=== PATIENT | male | born 1970 | race Caucasian/White ===

== ENCOUNTER 2023-03-01 23:25 | Emergency (ER) | payer OTHER ==
[~2023-03-01] VITALS: Ht 190.5 cm; Wt 109.8 kg
[2023-03-01] MEDS ORDERED: TADALAFIL10 MG PO (23:36)
[2023-03-02 01:42] VITALS: BP 151/73
== END 2023-03-02 01:40 | disposition short-term general hospital (02) ==
LOC: ED 23:25
DX: S05.92XA Unspecified injury of left eye and orbit, initial encounter (principal); Z20.822 Contact with and (suspected) exposure to COVID-19; W22.8XXA Striking against or struck by other objects, initial encounter; Z79.899 Other long term (current) drug therapy
CPT/HCPCS: 36415; 70486; 80053; 85025; 90471; 90715; 96365; 96375; 96376; 99284-25; C9803; G0480; J1170; J1956; J2405; J7030; U0002

== ENCOUNTER 2024-06-04 05:52 | Day surgery (SDC) | payer BC ==
[2024-06-03 08:13] VITALS: BP 126/78
[~2024-06-04] VITALS: Ht 190.5 cm; Wt 113.6 kg
[~2024-06-04 05:52] MED LIST: CIALIS20 MG PO; LACTATED RINGER'S 1,000 ML IV SCH; TADALAFIL10 MG PO
[2024-06-04 06:14] VITALS: BP 129/72
[2024-06-04] MEDS ORDERED: KETOROLAC TROMETHAMINE 30 MG/ML VIAL ONE (06:32)
[2024-06-04] MEDS ORDERED: LACTATED RINGER'S 1,000 ML IV ONE (06:32)
[2024-06-04] MEDS ORDERED: SUGAMMADEX SODIUM 200 MG/2 ML ML ONE (06:32)
[2024-06-04] MEDS ORDERED: ROCURONIUM BROMIDE 50 MG/5 ML SYR ONE (06:32)
[2024-06-04] MEDS ORDERED: MIDAZOLAM HCL 2 MG/2 ML VIAL ONE (06:32)
[2024-06-04] MEDS ORDERED: ondansetron HCL 4 MG/2 ML VIAL ONE (06:32)
[2024-06-04] MEDS ORDERED: METOCLOPRAMIDE HCL 10 MG/2 ML SDV ONE (06:32)
[2024-06-04] MEDS ORDERED: propofoL 200 MG/20 ML VIAL ONE (06:32)
[2024-06-04] MEDS ORDERED: SUCCINYLCHOLINE IN 0.9% NACL 200 MG/10 ML SYRINGE ONE (06:32)
[2024-06-04] MEDS ORDERED: DEXAMETHASONE SOD PHOS 4 MG/ML VIAL ONE (06:32)
[2024-06-04] MEDS ORDERED: fentaNYL citrate 100 MCG/2 ML VIAL ONE (06:33)
[2024-06-04] MEDS ORDERED: LIDOCAINE HCL 4% 5 ML AMP ONE (06:33)
[2024-06-04] MEDS ORDERED: FAMOTIDINE 20 MG/ 2 ML VIAL ONE (06:33)
[2024-06-04] MEDS ORDERED: BUPIVACAINE HCL 0.25% 50 ML MDV ONE (06:54)
[2024-06-04] MEDS ORDERED: LIDOCAINE 1% W/ EPI 1:200,000 30 ML SDV ONE (06:55)
[2024-06-04] MEDS ORDERED: IBLOOD GLUCOSE TEST STRIP 1 EA TEST VI PRN ×2 (07:00→09:00)
[2024-06-04] MEDS ORDERED: LIDOCAINE HCL 1% 5 ML SDV INJ ONE (07:00)
[2024-06-04] MEDS ORDERED: HEParin SOD (PORCINE) 5,000 UNIT/0.5 ML SYR SUB-Q SCH (07:00)
[2024-06-04] MEDS ORDERED: CEFAZOLIN SODIUM 2 GM/20 ML SYR IV SCH (07:00)
[2024-06-04] MEDS ORDERED: ATROPINE SULFATE 1 MG/ML VIAL ONE (08:02)
[2024-06-04] MEDS ORDERED: ePHEDrine sulfate 50 MG/ML AMP ONE (08:38)
--- NOTE | 2024-06-04 08:48 | NUR ---
06/04/24 0848 María Pope 0828 PT TO PACU SLEEPING ORAL AIRWAY IN PLACE O2 VIA MASK FOGGING NOTED IN MASK. MONTSERRAT ONTIVEROS GAVE EPHEDRINE FOR LOW BP.
[2024-06-04] MEDS ORDERED: MORPHINE SULFATE 10 MG/ML VIAL IV PRN (09:00)
[2024-06-04] MEDS ORDERED: droPERidol 5 MG/2 ML VIAL IV PRN (09:00)
[2024-06-04] MEDS ORDERED: HYDROmorphone HCL 1 MG/ML SYR IV PRN (09:00)
[2024-06-04] MEDS ORDERED: NALOXONE HCL 0.4 MG SYR IV PRN ×2 (09:00)
[2024-06-04] MEDS ORDERED: PROCHLORPERAZINE EDISYLATE 10 MG/2 ML VIAL IV PRN ×2 (09:00)
[2024-06-04] MEDS ORDERED: fentaNYL citrate 50 MCG/ML SDV IV PRN (09:00)
[2024-06-04] MEDS ORDERED: METOCLOPRAMIDE HCL 10 MG/2 ML SDV IV PRN (09:00)
[2024-06-04] MEDS ORDERED: ondansetron HCL 4 MG/2 ML VIAL IV PRN ×2 (09:00)
[2024-06-04 09:36] VITALS: BP 127/70
--- NOTE | 2024-06-04 09:42 | NUR ---
0930 PT ARRIVED TO [facility] VIA STREACHER. PT SITTING UPRIGHT IN BED, PT BREATHING EQUAL AND UNLABORED. PT AWAKE AND ORIENTED, PT DROWSEY. REPORT TAKEN FROM [facility]. PT HAS URINAL IN PLACE DUE TO PT HAS URGE TO VOID AFTER CATHETER REMOVAL, EDUCATION GIVEN ABOUT CATHETERS AND THE URGE TO URINATE AFTER. PT SIPPING WATER, VITALS TAKEN. PT REPORTS NO PAIN OR NAUSEA AT THIS TIME. PT HAS PUDDING AT BEDSIDE AND WATER AT BEDSIDE. PT SPOUSE IN ROOM. PT HAS CALL LIGHT WITHIN REACH, BED LOW AND LOCKED. PT HAS NO QUESTIONS AT THIS TIME.
[2024-06-04 10:33] VITALS: BP 111/55
--- NOTE | 2024-06-04 11:35 | NUR ---
1040 DISCHARGE PAPERWORK GONE OVER WITH PT AND GIRLFRIEND AT BEDSIDE. NO QUESTIONS AT THIS TIME. PT WAS ABLE TO VOID 100 MLS INTO URINAL. PT REPORTING TOLERABLE 1/10 PAIN, AND NO NAUSEA. 1055 IV DISCONTINUED FOR DISCHARGE, PT WAS ABLE TO DRESS ON OWN. PT ABLE TO AMBULATE TO WHEELCHAIR. PT DISCHARGED FROM DAY SURGERY VIA WHEELCHAIR TO FRONT OF THE HOSPITAL TO PT'S GIRLFRIEND'S CAR.
[2024-06-04] MEDS ORDERED: SEVOFLURANE 250 ML BTL INH ONE (14:22)
--- NOTE | 2024-06-05 07:11 | OR ---
[facility] [address], [place] [address] Signed DATE OF OPERATION: 06/04/2024 SURGEON: Rehana Arguello MD PREOPERATIVE DIAGNOSIS: Incarcerated paraumbilical incisional hernia. POSTOPERATIVE DIAGNOSIS: Incarcerated umbilical hernia (12 mm). PROCEDURE: Primary umbilical herniorrhaphy with intra-abdominal round 6.4 cm Ventralex mesh. ESTIMATED BLOOD LOSS: None. INDICATIONS: Abebe is a 53-year-old gentleman, who came to see me in March of 2023. He was in need of a screening colonoscopy. He wanted to put that off for just a bit. His job requires him to travel all over the country. He explained to me that he had two intestinal surgeries when he was around [age] years old while his family was in the . He has an infraumbilical midline incision and also a transverse incision in the right groin. He said he had pneumonia and was coughing and developed swelling and pain at the umbilicus. We thought he had an incarcerated paraumbilical incisional hernia. It is mostly reducible, but painful. We thought we could feel some stitches as well. The overlying skin was becoming very thin and red in color. In the meantime, he had a piece of wood strike him in the eye while he was out-camping and chopping wood. He has had to deal with that over the last few months. 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 He does have vision, but he has to look through scar tissue. In the meantime, he came back to the office, I was hoping to have his umbilical hernia repaired. In the office, I gave him our brochure on hernias. We reviewed the nature of incisional hernia. We discussed primary suture repair versus a mesh repair. He understands these are normally day surgeries. There is risk including, but not limited to bleeding, infection, scarring, change in contour of the skin, damage to bowel, infection of mesh requiring removal, recurrent hernias, and chronic pain. He had expressed understanding and wished to proceed. PROCEDURE IN DETAIL: I met with Abebe and his lifelong girlfriend. Our nurse was with us as well. We all identified the umbilical hernia and marked that appropriately. Again, we felt like it Electronically Signed By: REHANA ARGUELLO MD 06/05/24 0711 PATIENT NAME: ABEBE GOODMAN OPERATIVE REPORT DATE OF : 70 REPORT #: [id number] PHYSICIAN: REHANA ARGUELLO MD PCP: PATRIC BERNAL REPORT IS CONFIDENTIAL AND NOT TO BE RELEASED WITHOUT AUTHORIZATION [facility] [address], [place] [address] Signed was partially incarcerated and we thought we were feeling a surgical suture. After this, we took Abebe in the operating room and placed him in the supine position under general endotracheal tube anesthesia. He was given preoperative antibiotics along with subcutaneous heparin. SCDs were utilized. We inserted a Kay catheter with return of clear yellow urine without difficulty. He was prepped and draped in the usual sterile fashion. We extended his infraumbilical midline incision around the right side of his umbilicus and up the midline just a short distance. We elevated the skin bluntly and with the cautery. As we worked, we realized he had a partially incarcerated umbilical hernia. There was healthy tissue between the umbilicus in his previous incision. We reduced the omentum with the help of the cautery. We could see that there was no intestine adhere or underneath. We chose our 6.4 cm round Ventralex mesh, we placed that in the abdomen, brought up flushed against the posterior abdominal wall. We closed his fascial defect transversely with interrupted [id number] and simple #1 Prolene sutures. Several passes of the suture went through the tab on the mesh to help hold it in place. The tab was cut, flushed with the abdominal wall. We injected local anesthetic in the abdominal wall and subcutaneous tissues. The wound was irrigated and suctioned out until clear. We carefully brought the umbilical skin back down the midline with an interrupted 2-0 PDS suture. We closed the dermis with interrupted 3-0 subcuticular Monocryl sutures. The skin edges reapproximated with rodo. Dry gauze and tape were then applied. His Kay catheter was then removed without difficulty. Abebe was then awakened from his anesthesia, extubated in the OR, and taken to recovery room in stable condition. Rehana Arguello MD [facility] /[id number] cc: Patient Chart Rehana Arguello MD [facility] Electronically Signed By: REHANA ARGUELLO MD 06/05/24 0711 PATIENT NAME: ABEBE GOODMAN OPERATIVE REPORT DATE OF : 70 REPORT #: [id number] PHYSICIAN: REHANA ARGUELLO MD PCP: PATRIC BERNAL REPORT IS CONFIDENTIAL AND NOT TO BE RELEASED WITHOUT AUTHORIZATION [facility] [address] [place], [place] [address] Signed Copies: REHANA ARGUELLO MD ~ Electronically Signed By: REHANA ARGUELLO MD 06/05/24 0711 PATIENT NAME: ABEBE GOODMAN OPERATIVE REPORT DATE OF : 70 REPORT #: [id number] PHYSICIAN: REHANA ARGUELLO MD PCP: PATRIC BERNAL REPORT IS CONFIDENTIAL AND NOT TO BE RELEASED WITHOUT AUTHORIZATION
== END 2024-06-04 10:55 | disposition home or self-care (01) ==
LOC: DS 05:52
PROVIDERS: ATTEND Colon & Rectal Surgery
PROC: 0WUF0JZ Supplement Abdominal Wall with Synthetic Substitute, Open Approach (ICD-10-PCS; principal; 2024-06-04 07:30)
DX: K42.0 Umbilical hernia with obstruction, without gangrene (principal); F17.210 Nicotine dependence, cigarettes, uncomplicated; Z79.899 Other long term (current) drug therapy
CPT/HCPCS: 00750; C1781; J0330; J0461; J0690; J1100; J1644; J1885; J2250; J2405; J2704; J2765; J3010; J3490; J7121